=== PATIENT | female | born 1985 | race Caucasian/White ===

== ENCOUNTER → 2017-12-10 | Outpatient (CLI) | payer OTHER ==
[~2017-12-10] MED LIST: ALBUTEROL2.5 MG/3 M IH; DULERA 100 MCG/13 GM IH; FIORICET 50-321 EACH PO; MUCINEX FAST-M1 EAC1 PO; PEPCID40 MG PO; SINGULAIR10 MG PO; THEOCHRON200 MG PO; TOBRADEX EYE DR10 ML OP; ZOFRAN4 MG PO; ZYNCOF 20-400120 ML PO
== END | disposition home or self-care (01) ==
LOC: LAB 07:33
DX: R63.4 Abnormal weight loss (principal); R21 Rash and other nonspecific skin eruption; G47.9 Sleep disorder, unspecified; Z13.220 Encounter for screening for lipoid disorders; Z13.89 Encounter for screening for other disorder; Z11.3 Encounter for screening for infections with a predominantly sexual mode of transmission

== ENCOUNTER → 2018-04-04 | Outpatient (CLI) | payer OTHER | END | disposition home or self-care (01) | LOC: SONOGRAMA 09:49 → MAMO-SONO 10:15 | DX: E07.89 Other specified disorders of thyroid (principal); R10.84 Generalized abdominal pain; R11.2 Nausea with vomiting, unspecified; R63.4 Abnormal weight loss; R22.1 Localized swelling, mass and lump, neck ==

== ENCOUNTER 2018-04-06 07:29 | Outpatient (CLI) | payer OTHER | END 2018-04-06 07:42 | disposition home or self-care (01) | LOC: LAB 07:29 | DX: R11.2 Nausea with vomiting, unspecified (principal); E07.89 Other specified disorders of thyroid; R63.4 Abnormal weight loss; R22.1 Localized swelling, mass and lump, neck; R10.84 Generalized abdominal pain ==

== ENCOUNTER 2018-04-07 07:59 | Outpatient (CLI) | payer OTHER | END 2018-04-07 15:55 | disposition home or self-care (01) | LOC: TOM 07:59 | DX: R10.9 Unspecified abdominal pain (principal); R11.2 Nausea with vomiting, unspecified; E07.89 Other specified disorders of thyroid; R63.4 Abnormal weight loss; R22.1 Localized swelling, mass and lump, neck ==

== ENCOUNTER → 2018-06-01 | Emergency (ER) | payer OTHER ==
[~2018-06-01] VITALS: Ht 162.6 cm; Wt 63.5 kg
== END | disposition left against medical advice (07) ==
LOC: ER 00:55
DX: Z53.20 Procedure and treatment not carried out because of patient's decision for unspecified reasons (principal)

== ENCOUNTER 2022-03-26 13:17 | Emergency (ER) | payer OTHER ==
[~2022-03-26] VITALS: Ht 162.6 cm; Wt 63.5 kg
== END 2022-03-26 16:53 | disposition left against medical advice (07) ==
LOC: ER 13:17
DX: Z53.21 Procedure and treatment not carried out due to patient leaving prior to being seen by health care provider (principal)